=== PATIENT | female | born 1960 | race Caucasian/White ===

== ENCOUNTER 2021-05-02 08:20 | Outpatient (CLI) | payer OTHER, SELFPAY ==
--- NOTE | 2021-05-02 11:00 | NEURO_ITS ---
Impression: # Complains of numbness of legs and balance difficulties. # Normal motor and sensory nerve conduction study including F-waves. # No Tarsal Tunnel Syndrome. # Normal needle/EMG exam without neurogenic changes. # Clinical correlation recommended. Nerve Conduction Studies Anti Sensory Summary Table Stim Site NR Peak (ms) P-T Amp (?V) Site1 Site2 Delta-P (ms) Dist (cm) Alistair (m/s) Left Sup Fibular Anti Sensory (Ant Lat Mall) 14 cm 2.6 10.5 14 cm Ant Lat Mall 2.6 16.0 62 Right Sup Fibular Anti Sensory (Ant Lat Mall) 14 cm 2.7 16.3 14 cm Ant Lat Mall 2.7 16.0 59 Left Sural Anti Sensory (Lat Mall) Calf 2.9 22.5 Calf Lat Mall 2.9 16.0 55 Right Sural Anti Sensory (Lat Mall) Calf 3.0 4.0 Calf Lat Mall 3.0 16.0 53 Motor Summary Table Stim Site NR Onset (ms) O-P Amp (mV) Site1 Site2 Delta-0 (ms) Dist (cm) Alistair (m/s) Left Lateral Plantar Motor (ADM) Med Mall 4.4 3.2 Right Lateral Plantar Motor (ADM) Med Mall 4.0 2.4 Left Peroneal Motor (Vastus Med) Ankle 3.9 1.2 Popit Ankle 7.1 38.0 54 Popit 11.0 0.7 Right Peroneal Motor (Vastus Med) Ankle 3.4 4.4 Popit Ankle 6.9 38.0 55 Popit 10.3 3.8 Left Tibial Motor (Abd Kiser Brev) Ankle 3.9 4.5 Knee Ankle 7.5 41.0 55 Knee 11.4 3.0 Right Tibial Motor (Abd Kiser Brev) Ankle 4.0 7.2 Knee Ankle 8.3 40.0 48 Knee 12.3 7.2 F Wave Studies NR F-Lat (ms) L-R F-Lat (ms) Left Peroneal (Mrkrs) (EDB) 47.47 1.14 Right Peroneal (Mrkrs) (EDB) 46.33 1.14 Left Tibial (Mrkrs) (Abd Hallucis) 47.95 0.87 Right Tibial (Mrkrs) (Abd Hallucis) 47.08 0.87 EMG Side Muscle Nerve Root Ins Act Fibs Amp Dur Recrt Comment Right AntTibialis Dp Br Fibular L4-5 Nml Nml Nml Nml Nml Right Gastroc Tibial S1-2 Nml Nml Nml Nml Nml Right Fibularis Long Sup Br Fibular L5-S1 Nml Nml Nml Nml Nml Right Flex Dig Long Tibial L5-S2 Nml Nml Nml Nml Nml Right Ext Dig Brev Dp Br Fibular L5, S1 Nml Nml Nml Nml Nml Left AntTibialis Dp Br Fibular L4-5 Nml Nml Nml Nml Nml Left Gastroc Tibial S1-2 Nml Nml Nml Nml Nml Left Fibularis Long Sup Br Fibular L5-S1 Nml Nml Nml Nml Nml Left Flex Dig Long Tibial L5-S2 Nml Nml Nml Nml Nml Left Ext Dig Brev Dp Br Fibular L5, S1 Nml Nml Nml Nml Nml MTDD
== END 2021-05-02 08:21 | disposition home or self-care (01) ==
LOC: ANHNEURO 08:25
PROVIDERS: PCP Family Medicine; Visit Provider Family Medicine
DX: R26.9 Unspecified abnormalities of gait and mobility (principal)
CPT/HCPCS: 95886; 95911

== ENCOUNTER 2021-05-08 08:54 | Outpatient (CLI) | payer OTHER, SELFPAY ==
--- NOTE | ~2021-05-08 | MM_ITS ---
EXAMINATION: MM screening [facility] BI [place] HISTORY: Screening mammogram TECHNIQUE: Craniocaudal and mediolateral oblique 3-D tomosynthesis images were obtained and synthetic 2-D images were generated. CAD analysis was submitted and interpreted. COMPARISON: 12/14/2015, 09/30/2013 BREAST PARENCHYMAL COMPOSITION: The breasts are heterogeneously dense, which may obscure small masses . FINDINGS: There is no evidence of suspicious mass, calcification, or architectural distortion to sugg est malignancy in either breast. There has been no suspicious interval change. IMPRESSION: 1. No mammographic evidence of malignancy. 2. Recommend routine screening mammography in one year. BI-RADS Category 1: Negative Reviewed, dictated and finalized at location A.
== END 2021-05-08 08:55 | disposition home or self-care (01) ==
LOC: ANHIMG 08:55
PROVIDERS: PCP Family Medicine; Visit Provider Family Medicine
DX: Z12.31 Encounter for screening mammogram for malignant neoplasm of breast (principal)
CPT/HCPCS: 77063; 77067

== ENCOUNTER 2021-05-08 09:35 | Outpatient (CLI) | payer OTHER, SELFPAY ==
--- NOTE | ~2021-05-08 | XR_ITS ---
EXAMINATION: XR hand BI arthritis min 3V DATE: 05/08/2021 09:56 INDICATION: Right thumb pain. 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 TECHNIQUE: 4 views of right hand and 4 views of left hand on a total of 7 radiographs were obtained. COMPARISON: None. FINDINGS: RIGHT HAND: Bone alignment is normal. No fracture. There is moderate osteoarthritis of triscaphe join t and first carpometacarpal joint. There is mild osteoarthritis of second and fifth distal interphala ngeal joints. LEFT HAND: Bone alignment is normal. No fracture. There is mild osteoarthritis of triscaphe joint and first carpometacarpal joint. There is mild osteoarthritis of second and fifth proximal interphalange al joints and second-fourth distal interphalangeal joints. IMPRESSION: 1. Polyarticular osteoarthritis. Reviewed, dictated and finalized at location A.
--- NOTE | ~2021-05-08 | XR_ITS ---
EXAMINATION: XR foot RT min 3V DATE: 05/08/2021 09:56 INDICATION: Medial sided right foot pain TECHNIQUE: Dorsoplantar, two oblique and lateral views of the right foot were obtained. COMPARISON: None. FINDINGS: Alignment is normal. No fracture. Mild osteoarthritis at the first metatarsophalangeal and a few tars ometatarsal and interphalangeal joints. No erosions. Small plantar calcaneal spur. Soft tissues are u nremarkable. IMPRESSION: 1. Mild polyarticular osteoarthritis at the right fore and midfoot. No acute osseous abnormality. Reviewed, dictated and finalized at location A. IMPRESSION: 1. Mild polyarticular osteoarthritis at the right fore and midfoot. No acute os seous abnormality.
== END 2021-05-08 09:36 | disposition home or self-care (01) ==
LOC: ANHIMG 09:37
PROVIDERS: PCP Family Medicine; Visit Provider Family Medicine
DX: M25.549 Pain in joints of unspecified hand (principal); M25.571 Pain in right ankle and joints of right foot; M19.042 Primary osteoarthritis, left hand; M19.041 Primary osteoarthritis, right hand; M19.071 Primary osteoarthritis, right ankle and foot
CPT/HCPCS: 73130; 73630

== ENCOUNTER 2021-06-07 09:28 | Outpatient (CLI) | payer OTHER, SELFPAY ==
--- NOTE | ~2021-06-07 | MR_ITS ---
EXAMINATION: MR brain IAC wo con DATE: 06/07/2021 10:32 INDICATION: Dizziness and giddiness. Hearing loss. Tinnitus. TECHNIQUE: Multisequence magnetic resonance imaging (MRI) of the brain, brainstem, and internal audit ory canals was performed without intravenous contrast. COMPARISON: None. FINDINGS: There are scattered areas of nonspecific increased T2-weighted signal intensity in the cere bral white matter, which is within normal limits for the patient's age. There is no intracranial hemo rrhage, acute infarction, or abnormal intracranial mass lesion. The ventricles are normal in size. Th e orbits are normal. There is a mucous retention cyst in right maxillary sinus. The internal auditory canals and inner and middle ears are normal. The mastoid air cells are normal. IMPRESSION: 1. Normal aging brain. Reviewed, dictated and finalized at location A. IMPRESSION: 1. Normal aging brain.
== END 2021-06-07 09:29 | disposition home or self-care (01) ==
LOC: ANHIMG 09:28
PROVIDERS: PCP Family Medicine; Visit Provider Family Medicine
DX: H91.90 Unspecified hearing loss, unspecified ear (principal); R42 Dizziness and giddiness; H93.19 Tinnitus, unspecified ear
CPT/HCPCS: 70551

== ENCOUNTER 2021-06-18 09:00 | Outpatient (CLI) | payer OTHER, SELFPAY ==
--- NOTE | ~2021-06-18 | DEXA_ITS ---
Bone Density Report Name: ZORAIDA TREVIZO Age: 61 Sex: Female Ethnicity: White Date of : 1960 Indication: postmenopausal; screening for osteoporosis; height loss; Referring Provider: ALEJANDRA IBARRA Study: Bone densitometry was performed. Exam Date: June 18, 2021 Accession number: [id number] Bone Density: Region BMD T-score Z-score Classification AP Spine(L1-L4) 0.786 -2.4 -0.7 Osteopenia Femoral Neck (Left) 0.690 -1.4 0.0 Osteopenia Total Hip (Left) 0.820 -1.0 0.1 Normal Femoral Neck (Right) 0.683 -1.5 -0.1 Osteopenia Total Hip (Right) 0.826 -1.0 0.2 Normal Total Hip Mean 0.823 -1.0 0.2 Normal World Health Organization criteria for BMD impression classify patients as: Normal (T-score at or above -1.0), Osteopenia (T-score between -1.0 and -2.5), or Osteoporosis (T-score at or below -2.5). 10-year Fracture Risk(1): Major Osteoporotic Fracture 8.1% Hip Fracture 0.8% Reported Risk Factors: [place] (), Neck BMD=0.683, BMI=22.3 (1) FRAX(R) Version 3.08. Fracture probability calculated for an untreated patient. Fracture probability may be lower if the patient has received treatment. Clinical Information Provided by Patient: Has used the following medications: Vitamin D, Calcium Patient maximum height was 65 Menopause Age: 50 Does not regularly consume dairy products Onset of menses at age 11 Number of children 2 Impression: The patient has low bone mass, based on the Total Spine T-score. The patient has an estimated ten-year risk of hip fracture of 0.8% and an estimated ten-year risk of major fracture of 8.1%, based on the WHO FRAX algorithm. Discussion: BONE DENSITY IS LOW AT ONE OR MORE SKELETAL SITES. This patient's lowest T-score is low at one or more skeletal sites. It meets the World Health Organization's (WHO) criteria for ?low bone mass? (T-score between -1.0 and -2.5). The patient's 10-year risk of fracture as calculated by FRAX is less than the threshold where pharmacological therapy is recommended by the National Osteoporosis Foundation (NOF). However, all treatment decisions require clinical judgment and consideration of individual patient factors, including patient preferences, comorbidities, previous drug use, risk factors not captured in the FRAX model (e.g., frailty, falls, vitamin D deficiency, increased bone turnover, interval significant decline in bone density) and possible under or overestimation of fracture risk by FRAX. The patient should follow a healthful lifestyle (good nutrition with adequate calcium and vitamin D, and appropriate weight-bearing exercise). Follow-Up: Consider repeating this study in 2 to 3 years to reassess this patient's status, or sooner if there is some new clinical indication. Reported by: LANG on
== END 2021-06-18 09:01 | disposition home or self-care (01) ==
LOC: ANHIMG 09:03
PROVIDERS: PCP Family Medicine; Visit Provider Family Medicine
DX: Z78.0 Asymptomatic menopausal state (principal); M85.89 Other specified disorders of bone density and structure, multiple sites
CPT/HCPCS: 77080

== ENCOUNTER 2023-07-21 14:02 | Emergency (ER) | payer MEDICARE, SELFPAY ==
[2023-07-21 14:13] VITALS: BP 137/89; PULSE 88; RESP 16; TEMP 37.3; O2SAT 100
--- NOTE | 2023-07-21 14:44 | ED.ANIMALBIT ---
HPI - Animal Bite General Chief Complaint: Animal Bite Stated Complaint: Dog Bite Time Seen by Provider: 07/21/23 14:44 Source: patient Mode of arrival: ambulatory Limitations: no limitations History of Present Illness HPI narrative: 63 year old female presents with complaint dog bite to left breast. Injury happened around 9:00 p.m. last night. Patient states that she was bending over to pet dog without bra on and it nipped at her. Patient cleaned wound at home. All systems reviewed and negative except as noted above. Related Data Home Medications Medication Instructions Recorded Confirmed cholecalciferol (vitamin D3) 125 5,000 unit PO DAILY 01/18/19 07/21/23 mcg (5,000 unit) capsule multivitamin 1 cap PO DAILY 01/18/19 07/21/23 Allergies Allergy/AdvReac Type Severity Reaction Status Date / Time lisinopril Allergy Unknown COUGH Verified 07/21/23 14:03 Penicillins Allergy Unknown throat Verified 07/21/23 14:03 swelling PMFSH Past Medical History Medical History Hypothyroid Hypothyroid Surgical History Surgical History H/O thyroidectomy H/O tubal ligation History of lobectomy of thyroid Hx of tonsillectomy Status post right inguinal hernia repair 02-11-19 Unilateral inguinal hernia without obstruction or gangrene (Unknown) Family History Family History Mother Family history of osteoporosis Hypertension Family history of liver disease Family history of kidney disease Family history of primary malignant neoplasm of liver Family history of coronary artery disease Family history of lung disease Family history of hearing loss Family history of malignant neoplasm Grandparent Family history of osteoporosis Diabetes mellitus Father Family history of coronary artery disease Acute myocardial infarction Social History Social History Smoking status: Never smoker Alcohol intake: current Lack of Transportation: No Lack of Food: Never True Current Housing: I Have Housing Concerned About Future Housing: No Difficulty Paying Gas/Electric Bills: No Difficulty Paying for Meds: No Currently Unemployed: No Education: High School Diploma/GED Difficulty w/ Childcare or Family Care: YES Comments At time of signature, agree with nursing past medical, surgical, social and family history. There is no relevant family history pertinent to the presenting complaint. Exam Narrative: GENERAL: This is a well-nourished, well-developed patient, in no apparent distress. HEAD: normocephalic, atraumatic. EYES: PERRL. Sclera clear/white. Vision is grossly intact. EARS: External ears normal NOSE: External nose normal NECK: Neck supple, non-tender without lymphadenopathy, masses or thyromegaly. CARDIOVASCULAR: Regular rate and rhythm without murmurs, gallops, or rubs. RESPIRATORY: Clear to auscultation. Breath sounds equal bilaterally. No wheezes, rales, or rhonchi. SKIN: warm, Dry, intact with no suspicious lesions or rash, good texture and turgor. small puncture wound to L nipple without active bleeding. no signs of infection. NEURO: awake, alert, and oriented to person, place and time. There were no obvious focal neurologic abnormalities. EXTREMITIES: No joint tenderness, effusion, or edema noted. Course Course Level of Care: Express Care Visit Vital Signs Vital signs: Vital Signs Temperature 37.3 C 07/21/23 14:13 Pulse Rate 88 07/21/23 14:13 Respiratory Rate 16 07/21/23 14:13 Blood Pressure 137/89 07/21/23 14:13 Pulse Oximetry 100 07/21/23 14:13 Temperature 37.3 C 07/21/23 14:13 Pulse Rate 88 07/21/23 14:13 Respiratory Rate 16 07/21/23 14:13 Blood Pressure 137/89 07/21/23 14:13 Pulse Oximetry 100
== END 2023-07-21 15:15 | disposition home or self-care (01) ==
PROVIDERS: Emergency Provider Nurse Practitioner Family
DX: S21.052A Open bite of left breast, initial encounter (principal); W54.0XXA Bitten by dog, initial encounter; E03.9 Hypothyroidism, unspecified; Z90.89 Acquired absence of other organs
CPT/HCPCS: 99213; G0463

== ENCOUNTER 2024-05-12 09:22 | Outpatient (CLI) | payer MEDICARE, SELFPAY ==
--- OUTSIDE RECORDS SUMMARY | 2024-05-12 10:25 | XMS_ITS ---
Author Organization [facility] As [place] group Address [address] [place] [address] Care Team Providers Care Software Asset Manager Name Role Phone ALEJANDRA IBARRA MD Primary Care Provider Phong Arellano Unavailable [phone] Reinier Eva Unavailable [phone] Allergies Allergen (clinical drug ingredient) Drug/Non Drug Allergy documented on EMR Reaction Allergy Type Onset Date Status Substance with penicillin structure and antibacterial mechanism of action (substance) Penicillins Unknown Drug Allergy 11/04/2022 Active REASON FOR VISIT anxiety, depression Medications Medication SIG (Take, Route, Frequency, Duration) Notes Start Date End Date Status hydroCHLOROthiazide 25 MG Oral 11/04/2022 Active Venlafaxine HCl ER 75 MG Oral 11/04/2022 Active Levothyroxine Sodium 75 MCG Oral 11/04/2022 Active Vitamin D3 125 MCG (5000 UT) Oral 11/04/2022 Active Centrum Silver *Pick strength-form from [employer] for eRX* 11/04/2022 Active Social History Tobacco Use: Social History Observation Description Date Details (start date - stop date) Never Smoker NA - NA Sex Assigned At : Social History Observation Description Sex Assigned At Female Tobacco Control (Standard) Question Answer Notes Tobacco use: Nonsmoker AUDIT-C (Standard) Question Answer Notes Did you have a drink containing alcohol in the p ast year? No Vital Signs Blood pressure systolic 129 mm Hg 03/24/19 25 Blood pressure diastolic 84 mm Hg 025 Heart Rate 76 /min 03/24/2024 Height 63.50 in 03/24/2024 Weight 131.8 lbs 03/24/2024 BMI 22.98 kg/m2 03/24/2024 Height-cm 161.29 cm 03/24/2024 Weight-kg 59.78 kg 03/24/2024 Encounters Encounter Location Date Provider Diagnosis [facility] [address] [facility] [address] [place] [address] 03/24/2024 Eva Hills Generalized anxiety disorder F41.1 and Major depressive disorder, recurrent, moderate F33.1 Assessments Encounter Date Diagnosis (ICD Code) Assessment Notes Treatment Notes Treatment Clinical Notes Section Notes 03/24/2024 Generalized anxiety disorder (ICD-10 - F41.1) Client is a 64 y/o old, female (44 years), with 2 grown children (son live [facility], daughter lives in [place]). 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 She reports childhood was happy and fun. She reports she had some dyslexia in school but has learned to compensate for it. Client's had quadruple bypass surgery last year. She states he is going well as far as his health but is showing signs of dementia since the surgery. Client's son has an alcohol problem. Her son is planning on going to rehab. At various times he has been diagnosed with schizophrenia, depression, and bipolar di/o. Client first saw Dr. Bean in this clinic on 11/04/22. She is currently prescribed venlafaxine. Current PHQ=4. Client reports depression has been present since her father in 1989. She currently reports mild issues with anhedonia (taking care of her dogs and ), feeling down, self esteem, and issues with appetite (overeating). Current ARMEN=5. Client reports anxiety became an issue after she got (age 17). She reports mild issues with feeling on edge, worry and controlling the worry (her and her son), irritability, and hypervigilance. 03/24/2024 Major depressive disorder, recurrent, moderate (ICD-10 - F33.1) Client is a 64 y/o old, female (44 years), with 2 grown children (son live [facility], daughter lives in [place]). 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 She reports childhood was happy and fun. She reports she had some dyslexia in school but has learned to compensate for it. Client's had quadruple bypass surgery last year. She states he is going well as far as his health but is showing signs of dementia since the surgery. Client's son has an alcohol problem. Her son is planning on going to rehab. At various times he has been diagnosed with schizophrenia, depression, and bipolar di/o. Client first saw Dr. Bean in this clinic on 11/04/22. She is currently prescribed venlafaxine. Current PHQ=4. Client reports depression has been present since her father in 1989. She currently reports mild issues with anhedonia (taking care of her dogs and ), feeling down, self esteem, and issues with appetite (overeating). Current ARMEN=5. Client reports anxiety became an issue after she got (age 17). She reports mild issues with feeling on edge, worry and controlling the worry (her and her son), irritability, and hypervigilance. 03/24/2024 Other Client would like to present for therapy every 2 weeks. Client is a 64 y/o old, female (44 years), with 2 grown children (son live [facility], daughter lives in [place]). 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 She reports childhood was happy and fun. She reports she had some dyslexia in school but has learned to compensate for it. Client's had quadruple bypass surgery last year. She states he is going well as far as his health but is showing signs of dementia since the surgery. Client's son has an alcohol problem. Her son is planning on going to rehab. At various times he has been diagnosed with schizophrenia, depression, and bipolar di/o. Client first saw Dr. Bean in this clinic on 11/04/22. She is currently prescribed venlafaxine. Current PHQ=4. Client reports depression has been present since her father in 1989. She currently reports mild issues with anhedonia (taking care of her dogs and ), feeling down, self esteem, and issues with appetite (overeating). Current ARMEN=5. Client reports anxiety became an issue after she got (age 17). She reports mild issues with feeling on edge, worry and controlling the worry (her and her son), irritability, and hypervigilance. Plan Of Treatment Next Appt Details Follow Up: 2 Weeks, Reason: therapy follow up Provider Name:Phong De Lunaam , 06/09/2024 08:45:00 AM, [address], [address], [address], Provider Name:Eva Hills , 06/16/2024 09:00:00 AM, [address], [facility] [address], [place], [address], Progress Notes * ZORAIDA TREVIZODOB: (64 yo F)Acc No.[id number]:03/24/2024 Patient: Juan PRESTONZORAIDA Provider: Juan HILLS LCSW :1960 A ge:64 Y S ex:Female Date:03/24/2024 Address:[address] [place], [place] [id number] Pcp:ALEJANDRA IBARRA MD Data: * Time Tracker: * Date Start Time End Time Duration User Type Captured By Mode Notes 03/24/2024 03:00 PM 03:29 PM 00:29:00 Therapist Eva Hills anual * Chief Complaints: * 1 . Anxiety. 2. Depression. * HPI: F unctional Status: Client presents to initiate therapy services. D epression Screening: ARMEN-7 (2018 Edition) F eeling nervous, anxious, or on edge?Several days, N ot being able to stop or control worrying S everal days, W orrying too much about different things S everal days, T rouble relaxing N ot at all, B eing so restless that it is hard to sit still N ot at all, B ecoming easily annoyed or irritable?Several days, F eeling afraid as if something awful might happen S everal days, T otal ARMEN-7 Score 5 , I f you checked any problems, how difficult have they made it for you to do your work, take care of things at home, or get along with other people? S omewhat difficult, I nterpretation of Total ( 5 to 9) Mild. [place]-Suicide Severity Rating Scale: Suicide Risk (CSRS-screener) i n the past one month Have you wished you were or wished you could go to sleep and not wake up? N o, i n the past one month Have you actually had any thoughts of killing yourself? N o. D epression screening: PHQ-9 L ittle interest or pleasure in doing things S everal days, F eeling down, depressed, or hopeless S everal days, T rouble falling or staying asleep, or sleeping too much N ot at all, F eeling tired or having little energy N ot at all, P oor appetite or overeating S everal days, F eeling bad about yourself or that you are a failure, or have let yourself or your family down S everal days, T rouble concentrating on things, such as reading the newspaper or watching television N ot at all, M oving or speaking so slowly that other people could have noticed; or the opposite, being so fidgety or restless that you have been moving around a lot more than usual N ot at all, T houghts that you would be better off or of hurting yourself in some way N ot at all, T otal Score 4 , I nterpretation M inimal Depression. I ntervention D epression Screening Findings N egative, S uicide Risk Assessment Performed 0 03/24/2024 Client denies plan or intent to harm herself at this time.. * Behavioral History: P ast psychiatric Hospitalization:No. H istory of suicidal attempt?:No. * Medical History: P roblems: Generalized anxiety disorder, Moderate recurrent major depression, ,. * Surgical History: A ny surgical history 02/24/2018, Tonsilectomy/adenoids 08/09/1995. * Family History: F ather: None. M other: Anxiety Disorder. B rother: None. S on: Alcohol Abuse.? * Social History: T obacco Use: T obacco Control (Standard) T obacco use: N onsmoker. M igrated Social History: M igrated Social History: Alcohol Intake: None 11/04/2022,Tobacco Years: Never smoker 11/04/2022. D rug/Alcohol: D rugs H ave you used drugs other than those for medical reasons in the past 12 months??No. A ALFREDITO-C (Standard) D id you have a drink containing alcohol in the past year? N o. 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 Safety issues A re there any firearms in the house? N o. A dvance Care Planning A re you your own decision-maker Y es, D o you have Power of Scooping Machine Tender for Health or Medical? N o. S ocial History: H ousehold M arital Status: M arried, N umber of Adults in household: 2 , N umber of Children in Household: 1 , L evel of Education: N ot Answered. * Medications: T aking hydroCHLOROthiazide 25 MG Tablet Oral , Taking Levothyroxine Sodium 75 MCG Tablet Oral , Taking Venlafaxine HCl ER 75 MG Capsule Extended Release 24 Hour Oral , Taking Vitamin D3 125 MCG (5000 UT) Tablet Chewable Oral , Taking Centrum Silver , Notes to Pharmacist: *Pick strength-form from [employer] for eRX*, Medication List reviewed and reconciled with the patient * Allergies: P enicillins: Allergy - Onset Date 11/04/2022. * Vitals: B P:129/84mm Hg, HR:76/min, Wt:131.8lbs, Wt-k.78 kg, Ht: 63.50 in, Ht-cm: 161.29 cm, BMI:22.98Index, Body Surface Area: 1.63. * Examination: P sychiatry: Syd garcia is well groomed and oriented X 3. Assessment: * Assessment: 1. G eneralized anxiety disorder - F41.1 (Primary) 2 . M ajor depressive disorder, recurrent, moderate - F33.1 Client is a 64 y/o old, everardo ied female (44 years), with 2 grown children (son live local, daughter lives in [place]). 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 She reports childhood was happy and fun. She reports she had some dyslexia in school but has learned to compensate for it. Client's had quadruple bypass surgery last year. She states he is going well as far as his health but is showing signs of dementia since the surgery. Client's son has an alcohol problem. Her son is planning on going to rehab. At various times he has been diagnosed with schizophrenia, depression, and bipolar di/o. Syd garcia first saw Dr. Bean in this clinic on 11/04/22. She is currently prescribed venlafaxine. Current PHQ=4. Client reports depression has been present since her father in 1989. She currently reports mild issues with anhedonia (taking care of her dogs and ), feeling down, self esteem, and issues with appetite (overeating). Current ARMEN=5. Client reports anxiety became an issue after she got (age 17). She reports mild issues with feeling on edge, worry and controlling the worry (her and her son), irritability, and hypervigilance. Plan: * Treatment: * Procedure Codes: 9 0791 PSYCHIATRIC DIAGNOSTIC EVALUATION, 02859 BEHAV ASSMT W/SCORE & DOCD/STAND INSTRUMENT * Follow Up: 2 Weeks (Reason: therapy follow up) * Billing Information: * Visit Code: * Procedure Codes: 19866 PSYCHIATRIC DIAGNOSTIC EVALUATION. 41293 BEHAV ASSMT W/SCORE & DOCD/STAND INSTRUMENT. * [employer] Sign off status: Completed Signatures: No Ad Hoc Signature Added true * Provider: Juan HILLS LCSW Date: 0 03/24/2024 Generated for Shira bermeo/Beck/Pamellaitting on: 0 05/12/2024 10:25 AM CDT History and Physical Notes * HPI (History of Present Illness) Category Sub-Category Detail Notes Category Not es Depression screening PHQ-9 Little inte rest or pleasure in doing things: Several days Feeling down, depressed, or hopeless: Se veral days Trouble falling or staying asleep, or sl eeping too much: Not at all Feeling tired or having little energy: N ot at all Poor appetite or overeating: Several day s Feeling bad about yourself o r that you are a failure, or have let yourself or your family down: Several days Trouble concentrating on thi ngs, such as reading the newspaper or watching television: Not at all Moving or speaking so slowly that other people could have noticed; or the opposite, being so fidgety or restless that you have been moving around a lot more than usual: Not at all Thoughts that you would be b lewis off or of hurting yourself in some way: Not at all Total Score: 4 Interpretation: Minimal Depression Intervention Depression Screening Findings: N egative Suicide Risk Assessment Perf ormed: 03/24/2024 Client denies plan or intent to harm herself at this time. Functional Status Client pre sents to initiate therapy services. Depression Screening ARMEN-7 (2018 Edition) Feeling nervous, anxious, or on edge: Several days Not being able to stop or control worryi ng: Several days Worrying too much about different things : Several days Trouble relaxing: Not at all Being so restless that it is hard to sit still: Not at all Becoming easily annoyed or irritable: Se veral days Feeling afraid as if something awful kareen ht happen: Several days Total ARMEN-7 Score: 5 If you checked any problems, how difficult have they made it for you to do your work, take care of things at home, or get along with other people?: Somewhat difficult Interpretation of Total: (5 to 9) Mild [place]-Suicide Severity Rating Scale Suicide Risk (CSRS-screener) in the past one month Have you wished you were or wished you could go to sleep and not wake up?: No in the past one month Have y ou actually had any thoughts of killing yourself?: No Examination Category Sub-Category Detail Notes Category Not es Psychiatry Client is well groomed and oriented X 3.
--- OUTSIDE RECORDS SUMMARY | 2024-05-12 10:25 | XMS_ITS | Patient Health Record ---
Author Organization [facility] As [place] Communication Address [address] [place] [address] Care Team Providers Care Elevator Examiner Name Role Phone ALEJANDRA IBARRA MD Primary Care Provider Suly De LunaPhong john Unavailable [phone] ReinierEva glover Unavailable [phone] Migration, Provider Unavailable Unavailable Allergies Allergen (clinical drug ingredient) Drug/Non Drug Allergy documented on EMR Reaction Allergy Type Onset Date Status Substance with penicillin structure and antibacterial mechanism of action (substance) Penicillins Unknown Drug Allergy 11/04/2022 Active Reason For Referral No Information Medications Medication SIG (Take, Route, Frequency, Duration) Notes Start Date End Date Status Vitamin D3 125 MCG (5000 UT) Oral 11/04/2022 Active Centrum Silver *Pick strength-form from [employer] for eRX* 11/04/2022 Active hydroCHLOROthiazide 25 MG Oral 11/04/2022 Active Levothyroxine Sodium 75 MCG Oral 11/04/2022 Active Venlafaxine HCl ER 75 MG Oral 11/04/2022 Active Social History Tobacco Use: Social History Observation Description Date Details (start date - stop date) Never Smoker NA - NA Sex Assigned At : Social History Observation Description Sex Assigned At Female Tobacco Control (Standard) Question Answer Notes Tobacco use: Nonsmoker AUDIT-C (Standard) Question Answer Notes Did you have a drink containing alcohol in the p ast year? No Problems Problem Type SNOMED Code ICD Code Onset Dates Problem Status W/U Status Risk Notes Problem Moderate recurrent major depression (00989464) Major depressive disorder, recurrent, moderate (F33.1) Active confirmed Problem Generalized anxiety disorder (89949684) Generalized anxiety disorder (F41.1) 3 Active confirmed Vital Signs Heart Rate 76 /min 03/24/2024 Height-cm 161.29 cm 03/24/2024 Blood pressure diastolic 84 mm Hg 03/24/2024 Weight-kg 59.78 kg 03/24/2024 Height 63.50 in 03/24/2024 Blood pressure systolic 129 mm Hg 03/24/2024 Weight 131.8 lbs 03/24/2024 BMI 22.98 kg/m2 03/24/2024 Encounters Encounter Location Date Provider Diagnosis [place] [address] [address] 03/18/2024 Phong Vikas Generalized anxiety disorder F41.1 and Major depressive disorder, recurrent, moderate F33.1 [place] [address] [address] 03/24/2024 Eva Reinier Generalized anxiety disorder F41.1 and Major depressive disorder, recurrent, moderate F33.1 [place] [address] [address] 04/08/2024 Eva Reinier Generalized anxiety disorder F41.1 and Major depressive disorder, recurrent, moderate F33.1 [place] [address] [address] 05/11/2024 Eva Reinier Generalized anxiety disorder F41.1 and Major depressive disorder, recurrent, moderate F33.1 [place] [address] [address] 07/12/2023 Provider Migration [place] [address] [address] 07/13/2023 Provider Migration [place] [address] [address] 03/18/2024 Phong Vikas Assessments Encounter Date Diagnosis (ICD Code) Assessment Notes Treatment Notes Treatment Clinical Notes Section Notes 03/18/2024 Generalized anxiety disorder (ICD-10 - F41.1) 03/24/2024 Generalized anxiety disorder (ICD-10 - F41.1) Client is a 64 y/o old, female (44 years), with 2 grown children (son live [facility], daughter lives in [place]). 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 Client is the youngest of 2 and grew up in [place], [place]. She reports childhood was happy and [...] worry (her and her son), irritability, and hypervigilance . 04/08/2024 Generalized anxiety disorder (ICD-10 - F41.1) 05/11/2024 Generalized anxiety disorder (ICD-10 - F41.1) 05/11/2024 Major depressive disorder, recurrent, moderate (ICD-10 - F33.1) 04/08/2024 Major depressive disorder, recurrent, moderate (ICD-10 - F33.1) 03/24/2024 Major depressive disorder, recurrent, moderate (ICD-10 - F33.1) Client is a 64 y/o old, female (44 years), with 2 grown children (son live [facility], daughter lives in [place]). 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 Client is the youngest of 2 and grew up in [place], [place]. She reports childhood was happy and [...] worry (her and her son), irritability, and hypervigilance . 03/18/2024 Major depressive disorder, recurrent, moderate (ICD-10 - F33.1) 03/18/2024 Other Learning About Depression Screening material was printed Stress and Anxiety Related to Son's Alcoholism and Mental Health Issues - Assessment: Patient experiencing stress and anxiety due to son's alcoholism and mental health issues, compounded by 's recent heart attack and surgery. - Plan: - Encourage patient to attend individual counseling sessions. - Provide a list of prospective counselors for the patient to choose from. - Recommend continuing Al-Anon meetings for support and coping strategies. - Encourage open communication with and family members for additional support. Depressive Symptoms - Assessment: Patient exhibiting depressive symptoms, including increased eating and crying spells. - Plan: - Monitor depressive symptoms and consider referral to a psychiatrist if symptoms worsen or persist. - Encourage self-care activities and maintaining a healthy lifestyle. - Recommend avoiding reading materials that may trigger depressive symptoms. Son's Alcoholism and Mental Health Issues - Plan: - Encourage patient to continue seeking appropriate treatment options for her son. - Discuss importance of setting boundaries and potential consequences of enabling behavior. - Recommend attending a [facility] support group for additional resources and guidance. Marital Stress - Assessment: Patient experiencing marital stress related to son's issues. - Plan: - Encourage patient and to attend couples counseling. - Recommend open communication and mutual support between patient and . Guilt and Feelings of Failure - Assessment: Patient experiencing guilt and feelings of failure. - Plan: - Address these feelings in individual counseling sessions. - Develop healthy coping strategies, acknowledging patient's strong bhavesh as a source of support. - Encourage patient to focus on her own well-being and self-care. 03/24/2024 Other Client would like to present for therapy every 2 weeks. Client is a 64 y/o old, female (44 years), with 2 grown children (son live local, daughter lives in [place]). 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 Client is the youngest of 2 and grew up in [place], [place]. She reports childhood was happy and [...] worry (her and her son), irritability, and hypervigilance . 04/08/2024 Other Client focused on the anxiety created by her son's alcohol use. Her son went to the ER upon his docotr's advice, due to high blood pressure. It was then suggested that he go to rehab, which he is currently doing. Client is focused on preventing any enabling actions in regard to her son. Therapist actively listened to client and utilized a cognitive behavioral intervention to help client explore strategies to set reasonable boundaries with her son when he gets out of rehab. 05/11/2024 Other Client focused on her son's relapse since her son got out of rehab. She focused on the guilt she sometimes feels. She and continue to go to [facility] and client has also consulted with her learning and development assistant for guidance according to her bhavesh. Therapist actively listened to client and utilized a cognitive behaviorall intervention to help client explore strategies to minimize her guilt (setting firm boundaries with her son, turn guilt over to God, etc). ARMEN=7 mild Plan Of Treatment Next Appt Details Provider Name:Phong Chloe Vikas , 06/09/2024 08:45:00 AM, [address], [address], [place], [address], Provider Name:Eva Hills , 06/16/2024 09:00:00 AM, [address], [address], [place], [address], Insurance Providers Payer Name Payer Address Payer Phone Subscriber Number Group Number Insured Name Patient Relationship to Insured Coverage Start Date Coverage End Date [place] [address] [place] [phone] [id number] ZORAIDA TREVIZO Self - patient is the insured [facility] Medicare Supplement [address] [address] [place] [address] [id number] ZORAIDA TREVIZO Self - patient is the insured Medical (General) History Medical History History ICD Code Problems: Generalized anxiety disorder Moderate recurrent major depression , Surgical History Surgery Date(Month/Year) Any surgical history 02/24/2018 Tonsilectomy/adenoids 08/09/1995
--- OUTSIDE RECORDS SUMMARY | 2024-05-12 10:25 | XMS_ITS | Encounter Summary ---
Author Organization [facility] Address [address] [place] [address] Care Team Providers Care High School Science Teacher Name Role Phone Mariana Gardner MD Primary Care Provider [phone] Encounter Details Date Type Department Care Team (Late st Contact Info) Description 12/31/2019 Lab Requisition [facility] D[facility] [address], [facility] [place] [address] Zak Alvarenga MD [address] [place] [address] Social History Tobacco Use Types Packs/Day Years Used Date Smoking Tobacco: Never Assessed Sex and Gender Information Value Date Recorded Sex Assigned at Not on file Gender Identity Not on file Sexual Orientation Not on file documented as of this encounter Plan of Treatment Not on file documented as of this encounter Procedures Procedure Name Priority Date/Time Associated Diagnosis Comments DERMATOPATHOLOGY Routine 12/30/2019 12:0 0 AM MASONRY INSPECTOR documented in this encounter Results * DERMATOPATHOLOGY (12/30/2019 12:00 AM MASONRY INSPECTOR) Case Report Dermatopathology Report Case: [id number] Authorizing Provider: Zak Alvarenga MD Collected: 12/30/2019 12:00 AM Ordering Location: [facility] Care DermPath Lab Received: 12/31/2019 05:48 AM Pathologist: Angela Haq MD Specimen: Skin, crown of scalp 0 12:31 PM MASONRY INSPECTOR DERMATOPATHOLOGY LABORATORY Final Diagnosis Specimen A. SKIN, crown of scalp: TRICHILEMMAL (PILAR) CYST WITH CALCIFICATION (L72.12) 0 12:31 PM MASONRY INSPECTOR DERMATOPATHOLOGY LABORATORY Clinical History R/O neoplasia. 0 12:31 PM [facility] DERMATOPATHOLOGY LABORATORY Gross Description Specimen A: Received is one formalin filled container labeled with the patient's name and designated crown of scalp. The specimen consists of an excision submitted in 3 pieces measuring [id number], bisected, 9l7o7kj, & 5a7e6tw. Jar 0. 0 12:31 PM [facility] DERMATOPATHOLOGY LABORATORY Microscopic Description Specimen A. SKIN, crown of scalp: Sections show a cyst that is lined by stratified squamous epithelium that shows trichilemmal keratinization (no granular layer). There is homogeneous pink keratin and aggregates of homogenous amorphous basophilic material consistent with calcium within the cyst. 0 12:31 PM [facility] DERMATOPATHOLOGY LABORATORY Disclaimer An external and internal positive and negative controls are appropriate for the histochemical, immunohistochemical and immunofluorescence stain(s) in this case (if any), except where stated explicitly. The performance characteristics of the stain(s) cited in this report were developed and its performance characteristic determined by the Dermatopathology Laboratory at [facility], directed by Dr. Ruperto Novak. These tests need not be, and therefore are not, approved by the [place] Food and Drug Administration. The tests are used for clinical purposes. Billing Codes Specimen Charges Stain Charges 82484 1 0 12:31 PM [facility] DERMATOPATHOLOGY LABORATORY Embedded Images 0 12:31 PM [facility] DERMATOPATHOLOGY LABORATORY Pathology/Cytolog y TISSUE SPECIMEN FROM SKIN / Unknown 12/30/2019 12/31/2019 5:48 AM MASONRY INSPECTOR Zak Alvarenga MD LAB - PATHOLOGY/CYTO LOGY ORDERABLES DERMATOPATHOLOGY LABORATORY [facility] - Department of Dermatology [address], [address] [phone] documented in this encounter Visit Diagnoses Not on filedocumented in this encounter Care Teams High [employer] Science Teacher Relationship Specialty Start Date End Date Mariana Gardner MD [address] [place] [id number] PCP - General 12/30/19 documented as of this encounter
--- OUTSIDE RECORDS SUMMARY | 2024-05-12 10:25 | XMS_ITS | Continuity of Care Document ---
Author Organization [facility] Address [address] [place] [address] Phone Care Team Providers Care Film Librarian Name Role Phone Lee OD, Mateo Unavailable Unavailable Procedures Procedure Date Contact Lens Fitting Eye Exam & Treatment Refraction Eye Exam & Treatment Refraction Advance Directives Directive Yes / No Effective Date File Name No Information Encounters Encounter Description Practice Location Reason(s) For Visit Diagnoses Date Provider Providers Copied on Encounter [facility], [address] [place] [address] [address], [place], [place], [id number], tel:[phone] [facility] No Information 8-200 9 Lee OD Mateo. [address] , [address], [place], [place], [facility], . tel:[phone] [facility], [address], [place], [place], [address], [place] tel:[phone] [facility] No Information 3-200 9 Krishnasamy Hubert. [address], [place], [place], [facility], . tel:[phone] [facility], [address], [place], [place], [address], [place] tel:[phone] [facility] No Information Aug-1 3-200 7 Torsten Grayson. [address], [address], [place], [place], [address], [place]. tel:[phone] Family History Family Member Type Diagnosis Age At Onset No Information Payers Payer name Insurance type Covered green party ID Authoriza tion(s) No Information Social [...]
--- OUTSIDE RECORDS SUMMARY | 2024-05-12 10:25 | XMS_ITS ---
Author Organization [facility] Address [address] [place] [address] Care Team Providers Care Health Unit Clerk Name Role Phone ALEJANDRA IBARRA MD Primary Care Provider Phong Arellano Unavailable [phone] Eva Hills Unavailable [phone] REASON FOR VISIT checked in doing paper, anxiety, depression Medications Medication SIG (Take, Route, Frequency, Duration) Notes Start Date End Date Status Venlafaxine HCl ER 75 MG Oral 11/04/2022 Active Levothyroxine Sodium 75 MCG Oral 11/04/2022 Active Centrum Silver *Pick strength-form from [employer] for eRX* 11/04/2022 Active Vitamin D3 125 MCG (5000 UT) Oral 11/04/2022 Active hydroCHLOROthiazide 25 MG Oral 11/04/2022 Active Social History Tobacco Use: Social History Observation Description Date Details (start date - stop date) Never Smoker NA - NA Sex Assigned At : Social History Observation Description Sex Assigned At Female Tobacco Control (Standard) Question Answer Notes Tobacco use: Nonsmoker Encounters Encounter Location Date Provider Diagnosis [facility] [address] [place] [address] 04/08/2024 Eva Hills Generalized anxiety disorder F41.1 and Major depressive disorder, recurrent, moderate F33.1 Assessments Encounter Date Diagnosis (ICD Code) Assessment Notes Treatment Notes Treatment Clinical Notes Section Notes 04/08/2024 Generalized anxiety disorder (ICD-10 - F41.1) 04/08/2024 Major depressive disorder, recurrent, moderate (ICD-10 - F33.1) 04/08/2024 Other Client focused on the anxiety [...] son when he gets out of rehab. Plan Of Treatment Next Appt Details Follow Up: 2 Weeks, Reason: therapy follow up Provider Name:Phong Bean , 06/09/2024 08:45:00 AM, [address], [address], [address], Provider Name:Eva Hills , 06/16/2024 09:00:00 AM, [address], [place] [address], [place], [address], Progress Notes * ZORAIDA TREVIZODOB: 8 (64 yo F)Acc No.[id number]:04/08/2024 Patient: ZORAIDA VILLANUEVA Provider: Juan HILLS LCSW :1960 A ge:64 Y S ex:Female Date:04/08/2024 Address:[address] [place], [place] [id number] Pcp:ALEJANDRA IBARRA MD Data: * Time Tracker: * Date Start Time End Time Duration User Type Captured By Mode Notes 04/08/2024 08:58 AM 09:57 AM 00:59:00 Therapist Eva Hlils anual * Chief Complaints: * 1 . Checked in doing paper. 2. Anxiety. 3. Depression. * HPI: F unctional Status: Client is here today for psychotherapy to treat anxiety and depression. Based on our session, I think the patient is making moderate progress. At this time I do not recommend changes to the treatment plan. I do not think the patient poses significant risk of harm to self or others at this time. Discussed continued treatment with patient. D epression screening: PHQ-9 L ittle interest or pleasure in doing things S everal days, F eeling down, depressed, or hopeless S everal days, T rouble falling or staying asleep, or sleeping too much N ot at all, F eeling tired or having little energy S everal days, P oor appetite or overeating S everal [...] N ot at all, T otal Score 5, I nterpretation M ild Depression. I ntervention D epression Screening Findings?Positve, F ollow-Up for Depression M [facility] treatment assessment, Patient follow-up to return when and if necessary, S uicide Risk Assessment Performed 0 04/08/2024 Client denies plan or intent to harm herself at this time, A dditional Evaluation for Depression P sychiatric interview and evaluation, N rosalia of the standardized tool used for adult depression screening: P atient Health Questionnaire (PHQ-9). D epression Screening: ARMEN-7 (2018 Edition) F eeling nervous, anxious, or on edge?Several days, N ot being able to stop or control worrying M ore than half the days,?Worrying too much about different things S everal days, T rouble relaxing N ot at all, Being so restless that it is hard to sit still N ot at all, B ecoming easily annoyed or irritable S everal days, F eeling afraid as if something awful might happen S everal , T otal ARMEN-7 Score 6 , I nterpretation of Total ( 5 to 9) Mild. * Behavioral History: P ast psychiatric Hospitalization:No. H istory of suicidal attempt?:No. * Family History: F ather: None. M other: Anxiety Disorder. B rother: None. S on: Alcohol Abuse.? * Social History: T obacco Use: T obacco Control (Standard) T obacco use: N onsmoker. * Medications: T aking hydroCHLOROthiazide 25 MG Tablet Oral , Taking Levothyroxine Sodium 75 MCG Tablet Oral , Taking Venlafaxine HCl ER 75 MG Capsule Extended Release 24 Hour Oral , Taking Vitamin D3 125 MCG (5000 UT) Tablet Chewable Oral , Taking Centrum Silver , Notes to Pharmacist: *Pick strength-form from [facility] for eRX*, Medication List reviewed and reconciled with the patient * Examination: P sychiatry: C radha is well groomed and oriented X 3. Assessment: * Assessment: 1. G eneralized anxiety disorder - F41.1 (Primary) 2 . M ajor depressive disorder, recurrent, moderate - F33.1 Plan: * Treatment: * Procedure Codes: 9 0837 PSYCHOTHERAPY W/PATIENT 60 MINUTES, 05846 BEHAV ASSMT W/SCORE & DOCD/STAND INSTRUMENT, G8431 CLIN DEPRESSION SCREEN DOC * Follow Up: 2 Weeks (Reason: therapy follow up) * Billing Information: * Visit Code: * Procedure Codes: 20657 PSYCHOTHERAPY W/PATIENT 60 MINUTES. 82697 BEHAV ASSMT W/SCORE & DOCD/STAND INSTRUMENT. G8431 CLIN DEPRESSION SCREEN DOC. * ER FIXER Sign off status: Completed Signatures: No Ad Hoc Signature Added true * Provider: Juan HILLS LCSW Date: 0 04/08/2024 Generated for Shira bermeo/Beck/Pamellaitting on: 0 05/12/2024 10:24 AM CDT History and Physical Notes * HPI (History of Present Illness) Category Sub-Category Detail Notes Category Not es Depression screening PHQ-9 Little inte rest or pleasure in doing things: Several days Feeling down, depressed, or hopeless: Se veral days Trouble falling or staying asleep, or sl eeping too much: Not at all Feeling tired or having little energy: S everal days Poor appetite or overeating: Several day s [...] some way: Not at all Total Score: 5 Interpretation: Mild Depression Intervention Depression Screening Findings: P ositve Follow-Up for Depression: [facility] treatment assessment, Patient follow-up to return when and if necessary Suicide Risk Assessment Performed: 04/08 Client denies plan or intent to harm herself at this time Additional Evaluation for De pression: Psychiatric interview and evaluation Name of the standardized too l used for adult depression screening:: Patient Health Questionnaire (PHQ-9) Depression Screening ARMEN-7 (2018 Edition) Feelin g nervous, anxious, or on edge: Several days Not being able to stop or control worryi ng: More than half the days Worrying too much about different things : Several days Trouble relaxing: Not at all Being so restless that it is hard to sit still: Not at all Becoming easily annoyed or irritable: Se veral days Feeling afraid as if something awful kareen ht happen: Several days Total ARMEN-7 Score: 6 Interpretation of Total: (5 to 9) Mild Examination Category Sub-Category Detail Notes Category Not es Psychiatry Client is well groomed and oriented X 3
--- OUTSIDE RECORDS SUMMARY | 2024-05-12 10:25 | XMS_ITS ---
Author Organization [facility] Address [address] [place] [address] Care Team Providers Care Woodworker Helper Name Role Phone ALEJANDRA IBARRA MD Primary Care Provider Phong Arellano Unavailable [phone] Eva Hills Unavailable [phone] REASON FOR VISIT Therapy Follow Up, anxiety, depression Medications Medication SIG (Take, Route, Frequency, Duration) Notes Start Date End Date Status Vitamin D3 125 MCG (5000 UT) Oral 11/04/2022 Active Centrum Silver *Pick strength-form from [employer] for eRX* 11/04/2022 Active hydroCHLOROthiazide 25 MG [...] alcohol in the p ast year? No Encounters Encounter Location Date Provider Diagnosis [facility] [employer] [facility] [address] [place] [address] 05/11/2024 Eva Hills Generalized anxiety disorder F41.1 and Major depressive disorder, recurrent, moderate F33.1 Assessments Encounter Date Diagnosis (ICD Code) Assessment Notes Treatment Notes Treatment Clinical Notes Section Notes 05/11/2024 Generalized anxiety disorder (ICD-10 - F41.1) 05/11/2024 Major depressive disorder, recurrent, moderate (ICD-10 - F33.1) 05/11/2024 Other Client focused on her son's relapse since her son got out of rehab. She focused on the guilt she sometimes feels. 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 Therapist actively listened to client and utilized a cognitive behaviorall intervention to help client explore strategies to minimize her guilt (setting firm boundaries with her son, turn guilt over to God, etc). ARMEN=7 mild Plan Of Treatment Next Appt Details Follow Up: 2 Weeks, Reason: therapy follow up Provider Name:Phong Bean , 06/09/2024 08:45:00 AM, [address] [facility], [address], [address], Provider Name:Eva Hills , 06/16/2024 09:00:00 AM, [address], [address], [address], Progress Notes * ZORAIDA TREVIZODOB: 8 (64 yo F)Acc No.[id number]:05/11/2024 Patient: Juan SAMCHRISTOPHEZORAIDA Provider: Juan HILLS LCSW :1960 A ge:64 Y S ex:Female Date:05/11/2024 Address:[address] [place], [place] [id number] Pcp:ALEJANDRA IBARRA MD Data: * Time Tracker: * Date Start Time End Time Duration User Type Captured By Mode Notes 05/11/2024 09:08 AM 09:59 AM 00:51:00 Therapist Eva Hills anual * Chief Complaints: * 1 . Therapy Follow Up. 2. Anxiety. 3. Depression. * HPI: F [...] Discussed continued treatment with patient. D epression Screening: ARMEN-7 (2018 Edition) F eeling nervous, anxious, or on edge?More than half the days, N ot being able to stop or control worrying S everal days,?Worrying too much about different things S everal days, T rouble relaxing N ot at all, Being so restless that it is hard to sit still N ot at all, B ecoming easily annoyed or irritable S everal days, F eeling afraid as if something awful might happen M ore than half the days, T otal ARMEN-7 Score 7 , I f you checked any problems, how difficult have they made it for you to do your work, take care of things at home, or get along with other people??Somewhat difficult, I nterpretation of Total ( 5 to 9) Mild. C [place]-Suicide Severity Rating Scale: Suicide Risk (CSRS-screener) i n the past one month Have you wished you were or wished you could go to sleep and not wake up? N o. * Behavioral History: P ast psychiatric Hospitalization:No. [...] es, D o you have Power of Vulcanized Fiber Unit Operator for Health or Medical? N o. S [...] , Notes to Pharmacist: *Pick strength-form from [facility] for eRX*, Medication List reviewed and reconciled with the patient * Examination: G eneral Examination: C lient is casually groomed and oriented X 3. Assessment: * Assessment: 1. G eneralized anxiety disorder - F41.1 (Primary) 2 . M ajor depressive disorder, recurrent, moderate - F33.1 Plan: * Treatment: * Procedure Codes: 9 0834 PSYCHOTHERAPY W/PATIENT 45 MINUTES * Follow Up: 2 Weeks (Reason: therapy follow up) * Billing Information: * Visit Code: * Procedure Codes: 11848 PSYCHOTHERAPY W/PATIENT 45 MINUTES. * Sign off status: Completed Signatures: No Ad Hoc Signature Added true * Provider: Juan HILLS LCSW Date: 0 05/11/2024 Generated for Printi jean-claude/Beck/eTransmitting on: 0 05/12/2024 10:24 AM CDT History and Physical Notes * HPI (History of Present Illness) Category Sub-Category Detail Notes Category Not es Depression Screening ARMEN-7 (2018 Edition) Feelin g nervous, anxious, or on edge: More than half the days Not being able to stop or control worryi ng: Several days Worrying too much about different things : Several days Trouble relaxing: Not at all Being so restless that it is hard to sit still: Not at all Becoming easily annoyed or irritable: Se veral days Feeling afraid as if something awful kareen ht happen: More than half the days Total ARMEN-7 Score: 7 If you checked any problems, how difficult have they made it for you to do your work, take care of things at home, or get along with other people?: Somewhat difficult Interpretation of Total: (5 to 9) Mild [place]-Suicide Severity Rating Scale Suicide Risk (CSRS-screener) in the past one month Have you wished you were or wished you could go to sleep and not wake up?: No Examination Category Sub-Category Detail Notes Category Not es General Examination Client i s casually groomed and oriented X 3
--- OUTSIDE RECORDS SUMMARY | 2024-05-12 10:25 | XMS_ITS | Clinical Summary ---
Author Organization [facility] Address [address] [place] [address] Care Team Providers Care Grails Web Application Developer Name Role Phone Mariana Gardner MD Primary Care Provider [phone] Source Comments [facility]non-owned Affiliates and Associated Physician Practices is amultiple site organization consisting of ambulatory clinics and hospital sitesin [place], [place] and [place]. This disclosure is being madepursuant to the Care Everywhere program and may not contain all information available regarding this patient. Last updated 17.[facility] Immunizations Name Administration Dates Next Due Covid Pfizer primary monoval ent 12+ yr 0.3mL Purple cap 04/14/2020,03/24/2020 Social History Tobacco Use Types Packs/Day Years Used Date Smoking Tobacco: Never Assessed Sex and Gender Information Value Date Recorded Sex Assigned at Not on file Gender Identity Not on file Sexual Orientation Not on file Plan of Treatment Health Maintenance Due Date Last Done Comments BONE DENSITY TESTING 1960 COLOGUARD (AGES 45-75) - COL ON CA SCREENING 1960 COLON MONITORING 1958 COLONOSCOPY - COLON CA SCREENING 1958 CT COLONOGRAPHY - COLON CA SCREENING 1960 Colorectal Cancer Screening 1960 FIT - COLON CA SCREENING 1958 FLEX SIG - COLON CA SCREENING 1958 LIPID TESTING 1960 MAMMOGRAM 1960 HEPATITIS C SCREENING 01/09/1976 DTAP/TDAP/TD VACCINES (1 - Tdap) 1977 PNEUMOCOCCAL VACCINE 50+ (1 of 1 - PCV) 01/14/2008 ZOSTER VACCINE (1 of 2) 01/14/2008 COVID-19 VACCINE (3 - 2023-2 5 season) 2023 04/14/2020, 03/24/2020 INFLUENZA VACCINE (#1) 2023 DEPRESSION SCREENING 02/25/2024 Respiratory Syncytial Virus (RSV) Vaccine Pt: or over 60 yrs (1 - 1-dose 75+ series) 2033 HEPATITIS B VACCINE Aged Out No longe r eligible based on patient's age to complete this topic HIB VACCINE Aged Out No longer eligi ble based on patient's age to complete this topic HPV VACCINE Aged Out No longer eligi ble based on patient's age to complete this topic MENINGOCOCCAL (Group B) VACCINE SHARED DECISION-MAKING Aged Out No longer eligible based on patient's age to complete this topic MENINGOCOCCAL GROUPS A/C/Y/W VACCINE Aged Out No longer eligible b ased on patient's age to complete this topic Care Teams Grails Web Application Developer Relationship Specialty Start Date End Date Mariana Gardner MD [address] [place] [address] PCP - General 12/30/19
[2024-05-12 13:21] LABS: Alanine Aminotransferase 19 U/L (6-35); Albumin Level 4.2 g/dL (3.5-5.1); Alkaline Phosphatase 58 U/L (38-126); Anion Gap 9 mmol/L (4-12); Aspartate Amino Transferase 38 U/L (14-36); Bilirubin,Total 0.3 mg/dL (0.2-1.3); Blood Urea Nitrogen 20 mg/dL (7-17); Calcium 9.5 mg/dL (8.4-10.2); Carbon Dioxide 30 mmol/L (22-30); Chloride 103 mmol/L (98-107); Cholesterol 178 mg/dL (0-200); Estimated Glomerular Filt Rate 60; Glucose 88 mg/dL (65-110); HDL Direct 48 mg/dL; Potassium 4.2 mmol/L (3.4-5.0); Sodium 142 mmol/L (137-145); Triglycerides 87 mg/dL (<150)
[2024-05-12 13:32] LABS: LDL Cholesterol Direct 100 mg/dL
[2024-05-12 13:51] LABS: Thyroid Stimulating Hormone 0.409 uIU/mL (0.465-4.680)
[2024-05-12 14:37] LABS: Vitamin D 25 Hydroxy 65.1 ng/mL
== END 2024-05-12 09:23 | disposition home or self-care (01) ==
LOC: ANHGOSHLAB 09:24
PROVIDERS: PCP Family Medicine; Visit Provider Family Medicine
DX: E89.0 Postprocedural hypothyroidism (principal); I10 Essential (primary) hypertension; Z78.0 Asymptomatic menopausal state
CPT/HCPCS: 36415; 80053; 80061; 82306; 84443

== ENCOUNTER 2024-07-20 13:20 | Outpatient (CLI) | payer MEDICARE, SELFPAY ==
--- OUTSIDE RECORDS SUMMARY | 2024-07-20 13:23 | XMS_ITS | Continuity of Care Document ---
Author Organization [facility] Address [address] [place] [address] Phone Care Team Providers Care Deputy Manager Name Role Phone Lee OD, Mateo Unavailable Unavailable Procedures Procedure Date Contact Lens Fitting Eye Exam & Treatment Refraction Eye Exam & Treatment Refraction Advance Directives Directive Yes / No Effective Date File Name No Information Encounters Encounter Description Practice Location Reason(s) For Visit Diagnoses Date Provider Providers Copied on Encounter [facility], [id number] [place] [address] [address], [place], [place], [id number], tel:[phone] [facility] No Information 8-200 9 Lee OD Mateo. [address] , [address], [place], [place], [facility], . tel:[phone] [facility], [address], [place], [place], [address], [place] tel:[phone] [facility] No Information 3-200 9 Krishnasamy Hubert. [address], [place], [place], [facility], . tel:[phone] [facility], [address], [place], [place], [address], [place] tel:[phone] [facility] No Information Aug-1 3-200 7 Torsten Grayson. [address], [address], [place], [place], [id number], [place]. tel:[phone] Family History Family Member Type Diagnosis Age [...]
--- OUTSIDE RECORDS SUMMARY | 2024-07-20 13:23 | XMS_ITS | Patient Health Record ---
Author Organization [facility] Address [address] [place] [address] Care Team Providers Care Public Information Officer Name Role Phone ALEJANDRA IBARRA MD Primary Care Provider Suly Phong Kaur Unavailable [phone] ReinierEva glover Unavailable [phone] Allergies Allergen (clinical drug ingredient) Drug/Non Drug Allergy documented on EMR Reaction Allergy Type Onset Date Status Substance with penicillin structure and antibacterial mechanism of action (substance) Penicillins Unknown Drug Allergy 11/04/2022 Active Reason For Referral No Information Medications Medication SIG (Take, Route, Frequency, Duration) Notes Start Date End Date Status hydroCHLOROthiazide 25 MG Oral 11/04/2022 Active Vitamin D3 125 MCG (5000 UT) Oral 11/04/2022 Active Centrum Silver *Pick strength-form from Medispan for eRX* 11/04/2022 Active Levothyroxine Sodium 75 MCG Oral 11/04/2022 Active Venlafaxine HCl ER 75 MG 1 capsule in th e morning Oral Once a day for 90 days by FRED ROBERTS 11/04/2022 Active Social History Tobacco Use: Social [...] Risk Notes Problem Moderate recurrent major depression (44751537) Major depressive disorder, recurrent, moderate (F33.1) 3 Active confirmed Problem Generalized anxiety disorder (74004141) Generalized anxiety disorder (F41.1) Active confirmed Vital Signs Heart Rate 76 /min 06/09/2024 Height-cm 161.29 cm 06/09/2024 Blood pressure diastolic 87 mm Hg 06/09/2024 Weight-kg 57.15 kg 06/09/2024 Height 63.50 in 06/09/2024 Blood pressure systolic 140 mm Hg 06/09/2024 Weight 126 lbs 06/09/2024 BMI 21.97 kg/m2 06/09/2024 Encounters Encounter Location Date Provider Diagnosis [facility] [place] [address] [address] 03/18/2024 Phong Vikas Generalized anxiety disorder F41.1 and Major depressive disorder, recurrent, moderate F33.1 [facility] [place] [address] [address] 03/24/2024 Eva Reinier Generalized anxiety disorder F41.1 and Major depressive disorder, recurrent, moderate F33.1 [facility] [place] [address] [address] 04/08/2024 Eva Reinier Generalized anxiety disorder F41.1 and Major depressive disorder, recurrent, moderate F33.1 [facility] [place] [address] [address] 05/11/2024 Eva Reinier Generalized anxiety disorder F41.1 and Major depressive disorder, recurrent, moderate F33.1 [facility] [place] [address] [address] 06/09/2024 Phong Vikas Generalized anxiety disorder F41.1 ; Major depressive disorder, recurrent, moderate F33.1 ; Encounter for screening for depression Z13.31 ; Encounter for screening for cardiovascular disorders Z13.6 and Dietary counseling and surveillance Z71.3 [facility] [place] [address] [address] 03/18/2024 Phong De Lunaam Assessments Encounter Date Diagnosis (ICD Code) Assessment Notes Treatment Notes Treatment Clinical Notes Section Notes 03/18/2024 Generalized anxiety disorder (ICD-10 - F41.1) 03/24/2024 Generalized anxiety disorder (ICD-10 - F41.1) Client is a 64 y/o old, female (44 years), with 2 grown children (son live [facility], daughter lives in [place]). 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 Client is the youngest of 2 and grew up in [place], [place]. She reports childhood was happy and [...] 05/11/2024 Generalized anxiety disorder (ICD-10 - F41.1) 06/09/2024 Major depressive disorder, recurrent, moderate (ICD-10 - F33.1) 06/09/2024 Generalized anxiety disorder (ICD-10 - F41.1) 06/09/2024 Encounter for screening for depression (ICD-10 - Z13.31) 05/11/2024 Major depressive disorder, recurrent, moderate (ICD-10 - F33.1) 04/08/2024 Major depressive disorder, recurrent, moderate (ICD-10 - F33.1) 03/24/2024 Major depressive disorder, recurrent, moderate (ICD-10 - F33.1) Client is a 64 y/o old, female (44 years), with 2 grown children (son live [facility], daughter lives in [place]). 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 Client is the youngest of 2 and grew up in [place], [place]. She reports childhood was happy and [...] depressive disorder, recurrent, moderate (ICD-10 - F33.1) 06/09/2024 Encounter for screening for cardiovascular disorders (ICD-10 - Z13.6) 06/09/2024 Dietary counseling and surveillance (ICD-10 - Z71.3) 03/18/2024 Other Learning About Depression Screening material [...] of enabling behavior. - Recommend attending a [facility] support group for additional resources and [...] years), with 2 grown children (son live [facility], daughter lives in [place]). Client is a high school graduate, who worked at a [email or web address], retired about 3 years ago. Client is the youngest of 2 and grew up in [place], [place]. She reports childhood was happy and [...] feels. She and continue to go to [facility] and client has also consulted with her costume shop coordinator for guidance according to her bhavesh. Therapist actively listened to client and utilized a cognitive behaviorall intervention to help client explore strategies to minimize her guilt (setting firm boundaries with her son, turn guilt over to God, etc). ARMEN=7 mild 06/09/2024 Other Pooja Trevizo, female patient with history of anxiety and depression, presents with concerns about her son's alcohol use disorder and its impact on her mental health. Anxiety and Depression Assessment: Patient reports doing well overall but experiencing increased worry and stress related to her son's alcohol use disorder. She has been taking venlafaxine (Wellofaxine) with good effect, though she reports some sleep disturbances. Patient has found Al-Anon meetings helpful in coping with her son's substance use issues. Despite the stress from her son's situation, the patient's mood appears to be relatively stable on her current medication regimen. Plan: - Continue venlafaxine (Wellofaxine) at current dose (dose not specified in transcript) - Continue attending Al-Anon meetings - Maintain ongoing counseling with Eva - Follow up with psychiatrist in 4 months - Patient instructed to contact if medication adjustment is needed before next scheduled appointment Caregiver Stress Assessment: Patient is experiencing stress and worry related to her son's alcohol use disorder. Her son recently completed a rehab program but has since relapsed. The patient reports that her son's situation brought [her] down during the winter, indicating a significant impact on her own mental health. She is actively engaging in coping strategies, including attending Al-Anon meetings, which she finds beneficial. Plan: - Continue attending Al-Anon meetings - Maintain ongoing counseling with Eva for additional support Disclaimer: This note has been transcribed using speech recognition software and serves as a reflection of the patient's visit. While efforts have been made to ensure accuracy, there may be errors, including gas meter repair supervisor inaccuracies and misspellings of medication names. This document should not be considered a verbatim record, and any discrepancies should be verified with the provider. Plan Of Treatment Next Appt Details Provider Name:Phong Bean , 10/13/2024 10:45:00 AM, [address], [address], [place], [address], Insurance Providers Payer Name Payer Address Payer Phone Subscriber Number Group Number Insured Name Patient Relationship to Insured Coverage Start Date Coverage End Date [place] [address] [place] [address] [id number] POOJA TREVIZO Self - patient is the insured [employer] Medicare Supplement [address] [address] [place] [address] [id number] POOJA TREVIZO Self - patient is the insured Medical (General) History Medical History History ICD Code Problems: Generalized anxiety disorder Moderate recurrent major depression , Surgical History Surgery Date(Month/Year) Any surgical history 02/24/2018 Tonsilectomy/adenoids 08/09/1995
--- OUTSIDE RECORDS SUMMARY | 2024-07-20 13:23 | XMS_ITS | Encounter Summary ---
Author Organization [facility] Address [address] [place] [address] Care Team Providers Care Special Services Director Name Role Phone Mariana Gardner MD Primary Care Provider [phone] Encounter Details Date Type Department Care Team (Late st Contact Info) Description 12/31/2019 Lab Requisition [facility] [address] [facility] [place] [address] [place] [address] [place] [address] Social History Tobacco Use Types Packs/Day Years Used Date Smoking Tobacco: Never Assessed Comments Unknown Sex and Gender Information Value Date Recorded Sex Assigned at Not on file Legal Sex Female 3:48 PM PRELOAD SUPERVISOR Gender Identity Not on file Sexual Orientation Not on file documented as of this encounter Plan of Treatment Not on file documented as of this encounter Procedures Procedure Name Priority Date/Time Associated Diagnosis Comments DERMATOPATHOLOGY Routine 12/30/2019 12:0 0 AM PRELOAD SUPERVISOR documented in this encounter Results * DERMATOPATHOLOGY (12/30/2019 12:00 AM PRELOAD SUPERVISOR) Case Report Dermatopathology Report Case: [id number] Authorizing Provider: Zak Alvarenga MD Collected: 12/30/2019 12:00 AM Ordering Location: [facility] Received: 12/31/2019 05:48 AM Pathologist: Angela Haq MD Specimen: Skin, crown of scalp 0 12:31 PM PRELOAD SUPERVISOR DERMATOPATHOLOGY LABORATORY Final Diagnosis Specimen A. SKIN, crown of scalp: TRICHILEMMAL (PILAR) CYST WITH CALCIFICATION (L72.12) 0 12:31 PM [facility] DERMATOPATHOLOGY LABORATORY at 1231 PRELOAD SUPERVISOR Clinical History R/O neoplasia. 0 12:31 PM [facility] DERMATOPATHOLOGY LABORATORY Gross Description Specimen A: Received is one formalin filled container labeled with the patient's name and designated crown of scalp. The specimen consists of an excision submitted in 3 pieces measuring [id number], bisected, 3y3d2mg, & 6m6u3ur. Jar 0. 0 12:31 PM [facility] DERMATOPATHOLOGY LABORATORY Microscopic Description Specimen A. SKIN, crown of scalp: Sections show a cyst that is lined by stratified squamous epithelium that shows trichilemmal keratinization (no granular layer). There is homogeneous pink keratin and aggregates of homogenous amorphous basophilic material consistent with calcium within the cyst. 0 12:31 PM [facility] DERMATOPATHOLOGY LABORATORY Disclaimer An external and internal positive and negative controls are appropriate for the histochemical, immunohistochemical and immunofluorescence stain(s) in this case (if any), except where stated explicitly. The performance characteristics of the stain(s) cited in this report were developed and its performance characteristic determined by the Dermatopathology Laboratory at [facility], directed by Dr. Ruperto Novak. These tests need not be, and therefore are not, approved by the [place] Food and Drug Administration. The tests are used for clinical purposes. Billing Codes Specimen Charges Stain Charges 30670 1 0 12:31 PM [facility] DERMATOPATHOLOGY LABORATORY Embedded Images 0 12:31 PM [facility] DERMATOPATHOLOGY LABORATORY Pathology/Cytolog y TISSUE SPECIMEN FROM SKIN / Unknown 12/30/2019 12/31/2019 5:48 AM PRELOAD SUPERVISOR Zak Alvarenga MD LAB - PATHOLOGY/CYTOLOGY ORDERAB LES Final Result DERMATOPATHOLOGY LABORATORY [facility] - Department of Dermatology [facility] [address] [place] [address], [address] [place] [address], [facility] [phone] documented in this encounter Visit Diagnoses Not on filedocumented in this encounter Care Teams Special Services Director Relationship Specialty Start Date End Date Mariana Gardner MD [address] [place] [address] PCP - General 12/30/19 documented as of this encounter
--- OUTSIDE RECORDS SUMMARY | 2024-07-20 13:23 | XMS_ITS | Clinical Summary ---
Author Organization [facility] Address [address] [place] [address] Care Team Providers Care Child Psychology Teacher Name Role Phone Mariana Gardner MD Primary Care Provider [phone] Source Comments [facility],non-owned Affiliates and Associated Physician Practices is amultiple site organization consisting of ambulatory clinics and hospital sitesin [place], [place], [place] and [place]. This disclosure is being madepursuant to the Care Everywhere program and may not contain all information available regarding this patient. 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
== END 2024-07-20 13:21 | disposition home or self-care (01) ==
LOC: ANHGOSHLAB 13:21
PROVIDERS: PCP Family Medicine; Visit Provider Student in an Organized Health Care Education/Training Program
DX: E03.9 Hypothyroidism, unspecified (principal)
CPT/HCPCS: 36415; 84443

== ENCOUNTER 2025-01-07 09:28 | Outpatient (CLI) | payer MEDICARE, SELFPAY ==
--- OUTSIDE RECORDS SUMMARY | 2008-05-21 02:15 | XMS_ITS | Continuity of Care Document ---
Author Organization [facility] Address [address] [place] [address] Phone Care Team Providers Care Small Animal Veterinarian Name Role Phone Lee OD, Mateo Unavailable Unavailable Procedures Procedure Date Contact Lens Fitting Eye Exam & Treatment Refraction Eye Exam & Treatment Refraction Advance Directives Directive Yes / No Effective Date File Name No Information Encounters Encounter Description Practice Location Reason(s) For Visit Diagnoses Date Provider Providers Copied on Encounter formerly [facility], [address] [place] [address] [address], [place], [place], [address], tel:[phone] [facility] No Information 8-200 9 Lee OD Mateo. [address] , [address], [place], [place], [facility], . tel:[phone] formerly [facility], [address], [place], [place], [address], [place] tel:[phone] [facility] No Information 3-200 9 Krishnasamy Hubert. [address], [place], [place], [facility], . tel:[phone] formerly [facility], [address], [place], [place], [address], [place] tel:[phone] [facility] No Information Aug-1 3-200 7 Torsten Grayson. [address], [address], [place], [place], [address], [place]. tel:[phone] Family History Family Member Type Diagnosis Age At Onset No Information Payers Payer name Insurance type Covered constitution party ID Authoriza tion(s) No Information Social History Type Description Quantity Date Captured Comments Sex Female Smoking Status No Information Chief Complaint And Reason For Visit No Information Reason For Referral Reason For Referral No Information History Of Present Illness Encounter Date Complaint History Of Prese nt Illness No Information Functional Status Date Functional Assessmen t No Information Instructions Date Instruction Additional Infor mation No Information Assessments Type Assessment Date No Information Patient Care Teams Name Effective Dates (start - stop) Status Members No Information
--- OUTSIDE RECORDS SUMMARY | 2008-05-21 02:15 | XMS_ITS | Continuity of Care Document ---
Author Organization [facility] Address [address] [place] [address] Phone Care Team Providers Care Straightedge Machine Operator Helper Name Role Phone Lee OD, Mateo Unavailable Unavailable Procedures Procedure Date Contact Lens Fitting Eye Exam & Treatment Refraction Eye Exam & Treatment Refraction Advance Directives Directive Yes / No Effective Date File Name No Information Encounters Encounter Description Practice Location Reason(s) For Visit Diagnoses Date Provider Providers Copied on Encounter [facility], [address] [place] [address] [address], [place], [place], [address], tel:[phone] [facility] No Information 8-200 9 Lee OD Mateo. [address] [place] , [address], [place], [place], [facility], . tel:[phone] [facility], [address], [place], [place], [address], [place] tel:[phone] [facility] No Information 3-[address], [place], [place], [facility], . tel:[phone] [facility], [address], [place], [place], [address], [place] tel:[phone] [facility] No Information Aug-1 3-200 7 Torsten Grayson. [address], [address], [place], [place], [address], [place]. tel:[phone] Family History Family Member Type Diagnosis Age At Onset No Information Payers Payer name Insurance type Covered libertarian ID Authoriza tion(s) No Information Social History [...]
--- OUTSIDE RECORDS SUMMARY | 2008-05-21 02:15 | XMS_ITS | Continuity of Care Document ---
Author Organization [facility] Address [address] [place] [address] Phone Care Team Providers Care Computer Typesetter Name Role Phone Lee OD, Mateo Unavailable Unavailable Procedures Procedure Date Contact Lens Fitting Eye Exam & Treatment Refraction Eye Exam & Treatment Refraction Advance Directives Directive Yes / No Effective Date File Name No Information Encounters Encounter Description Practice Location Reason(s) For Visit Diagnoses Date Provider Providers Copied on Encounter [facility], [address] [place] [address] [address], [place], [place], [address], tel:[phone] [facility] No Information 8-200 9 Lee OD Mateo. [address] [place] , [address], [place], [place], [facility], . tel:[phone] [facility], [address], [place], [place], [address], [place] tel:[phone] [facility] No Information 3-200 9 Krishnasamy Hubert. [address], [place], [place], [facility], . tel:[phone] [facility], [address], [place], [place], [address], [place] tel:[phone] [facility] No Information Aug-1 3-200 7 Torsten Grayson. [address], [address], [place], [place], [address], [place]. tel:[phone] Family History Family Member Type Diagnosis Age [...]
--- OUTSIDE RECORDS SUMMARY | 2008-05-21 02:15 | XMS_ITS | Continuity of Care Document ---
Author Organization [facility] Address [address] [place] [address] Phone Care Team Providers Care Dye Tank Tender Name Role Phone Lee OD, Mateo Unavailable Unavailable Procedures Procedure Date Contact Lens Fitting Eye Exam & Treatment Refraction Eye Exam & Treatment Refraction Advance Directives Directive Yes / No Effective Date File Name No Information Encounters Encounter Description Practice Location Reason(s) For Visit Diagnoses Date Provider Providers Copied on Encounter [facility], [address] [place] [address] [address], [place], [place], [address], tel:[phone] [facility] No Information 8-200 9 Lee OD Mateo. [address] [place] , [address], [place], [place], [facility], . tel:[phone] [facility], [address], [place], [place], [address], [place] tel:[phone] [facility] No Information 3-200 9 Krishnasamy Hubert. [address], [place], [place], [facility], . tel:[phone] [facility], [address], [place], [place], [address], [place] tel:[phone] [facility] No Information Aug-1 3-200 7 Torsten Graysno. [address], [address], [place], [place], [address], [place]. tel:[phone] Family History Family Member Type Diagnosis Age At Onset No Information Payers Payer name Insurance type Covered democrat ID Authoriza tion(s) No Information Social History [...]
--- OUTSIDE RECORDS SUMMARY | 2024-10-13 04:45 | XMS_ITS ---
Author Organization [facility] Address [facility] [address] [facility] [address] [place] [address] Care Team Providers Care Computer Programming Supervisor Name Role Phone FRED MORRIS, ALEJANDRA Primary Care Provider Unav ailPhong James Unavailable [phone] REASON FOR VISIT 4 MONTH F/U Social History Sex Assigned At : Social History Observation Description Sex Assigned At Female Encounters Encounter Location Date Provider Diagnosis [facility] [place] [address] [facility] [address] [facility] [address] [place] [address] 10/13/2024 Phong Montaño Plan Of Treatment No Information Progress Notes * ZORAIDA TREVIZODOB: 8 (64 yo F)Acc No.[id number]:10/13/2024 Patient: ZORAIDA VILLANUEVA Provider: Hiram MONTAÑO MD :1960 A ge:64 Y S ex:Female Date:10/13/2024 Address:[address] [place], [place] [address] Pcp:ALEJANDRA IBARRA MD Subjective: * Chief Complaints: * 4 MONTH F/U * Active Problem List F41.1 Generalized anxiety disorder Onset Date:11/04/2022Modified On:03/18/2024W/U Status:confirmed F33.1 Major depressive dis order, recurrent, moderate Onset Date:11/04/2022Modified On:03/18/2024W/U Status:confirmed * Electronic signature of Sophy Montaño MD on 01/07/2025 at 10:32 AM WIND TURBINE ELECTRICAL ENGINEER Sign off status: Pending * Provider: Hiram MONTAÑO MD Date: 0 10/13/2024 Generated for Shira bermeo/Beck/Doretha on: 1 03/09/2024 10:32 AM WIND TURBINE ELECTRICAL ENGINEER
--- NOTE | ~2025-01-07 | MM_ITS ---
EXAMINATION: MM screening marin BI w rico HISTORY: Screening TECHNIQUE: Craniocaudal and mediolateral oblique 3-D tomosynthesis images were obtained and synthetic 2-D images were generated. CAD analysis was submitted and interpreted. COMPARISON: Comparison to multiple prior studies sequentially, with oldest reviewed study dated 12/14/2015. BREAST PARENCHYMAL COMPOSITION: Dense: The breasts are extremely dense, which lowers the sensitivity of mammography. FINDINGS: There is no evidence of suspicious mass, calcification, or architectural distortion to suggest malignancy in either breast. There has been no suspicious interval change. IMPRESSION: 1. No mammographic evidence of malignancy. 2. Recommend routine screening mammography in one year. BI-RADS Category 1: Negative Reviewed, dictated and finalized at location B. ESSIONS MANAGER
--- NOTE | ~2025-01-07 | DEXA_ITS ---
Bone Density Report Name: ZORAIDA TREVIZO Age: 64 Sex: Female Ethnicity: White Date of : 1960 Indication: postmenopausal osteoporosis; height loss; Referring Provider: ROSALBA ALANIZ Study: Bone densitometry was performed. Exam Date: January 07, 2025 Accession number: [id number] Bone Density: Region BMD T-score Z-score Classification AP Spine(L2, L3, L4) 0.773 -2.8 -0.8 Osteoporosis Femoral Neck (Left) 0.696 -1.4 0.2 Osteopenia Total Hip (Left) 0.942 0.0 1.3 Normal Femoral Neck (Right) 0.692 -1.4 0.2 Osteopenia Total Hip (Right) 0.896 -0.4 1.0 Normal Total Hip Mean 0.919 -0.2 1.2 Normal World Health Organization criteria for BMD impression classify patients as: Normal (T-score at or above -1.0), Osteopenia (T-score between -1.0 and -2.5), or Osteoporosis (T-score at or below -2.5). 10-year Fracture Risk: FRAX not reported because: Some T-score for Spine Total or Hip Total or Femoral Neck at or below -2.5 Previous Exams: Region Exam Age BMD T-score BMD Change BMD Change Date g/cm2 vs Baseline vs Previous AP Spine (L2-L4) 01/07/2025 64 0.773 -2.8 -0.021 (-2.7%) -0.021 (-2.7%) 06/18/2021 61 0.794 -2.6 Total Hip(Left) 01/07/2025 64 0.942 0.0 0.122 (14.9%)* 0.122 (14.9%)* 06/18/2021 61 0.820 -1.0 Total Hip(Right) 01/07/2025 64 0.896 -0.4 0.070 (8.4%)* 0.070 (8.4%)* 06/18/2021 61 0.826 -1.0 *Denotes significance at 95% confidence level, LSC for AP Spine = 0.022 g/cm2, LSC for Total Hip = 0.027 g/cm2 Clinical Information Provided by Patient: Has used the following medications: Vitamin D, Calcium Patient maximum height was 65.0 Menopause Age: 50 Drinks caffeinated beverages Onset of menses at age 11 Number of children 2 Impression: The patient has osteoporosis, based on the Total Spine T-score. No significant bone loss was observed. Discussion: INCREASED RISK OF FRACTURE. BONE DENSITY IS UNDESIRABLY LOW AT ONE OR MORE SKELETAL SITES, CONSISTENT WITH POSTMENOPAUSAL OSTEOPOROSIS. This patient's lowest T-score meets the World Health Organization's (WHO) criteria for osteoporosis at one or more sites (T-score -2.5 or below). In untreated patients, the risk of osteoporotic fracture increases approximately two-fold for each 1.0 SD decrease in T-score. Low bone density is not the only risk factor for fracture; also consider factors such as patient's age, frailty or poor health, risk of falling, risk of injury, previous osteoporotic fracture, family history of osteoporosis, cigarette smoking, low body weight, etc. Not everyone with low bone mineral density has osteoporosis; osteomalacia and other metabolic bone disorders should also be considered. Patients who have osteoporosis should be evaluated for specific diseases and conditions (secondary causes) that may cause or contribute to bone loss. The [place] Association [employer] Clinical Endocrinologists (AACE) and National Osteoporosis Foundation (NOF) recommend pharmacologic intervention for all postmenopausal women whose T-score is in this range. The patient should follow a healthful lifestyle (good nutrition with adequate calcium and vitamin D, and appropriate weight-bearing exercise). Follow-Up: Consider a repeat BMD and Vertebral Fracture Assessment (VFA) exam in 2 years or sooner if medically necessary, to reassess this patient's status. Reported by: LANG on 01/07/2025 10:54:00 AM. Reviewed, dictated and finalized at location A.
--- OUTSIDE RECORDS SUMMARY | 2025-01-07 10:33 | XMS_ITS | Patient Health Record ---
Author Organization [facility] Address [address] [place] [address] Care Team Providers Care Medical Review Specialist Name Role Phone ALEJANDRA IBARRA MD Primary Care Provider Suly garcia oSraya Beany Unavailable [phone] ReinierEva Unavailable [phone] Allergies Allergen (clinical drug ingredient) Drug/Non Drug Allergy documented on EMR Reaction Allergy Type Onset Date Status Substance with penicillin structure and antibacterial mechanism of action (substance) Penicillins Unknown Drug Allergy 11/04/2022 Active Reason For Referral No Information Medications Medication SIG (Take, Route, Frequency, Duration) Notes Start Date End Date Status hydroCHLOROthiazide 25 MG Tablet Oral 11/04/2022 Active Vitamin D3 125 MCG (5000 UT) Tablet Chewable Oral 11/04/2022 Active Centrum Silver *Pick strength-form from Medispan for eRX* 11/04/2022 Active Levothyroxine Sodium 75 MCG Tablet Oral 11/04/2022 Active Venlafaxine HCl ER 75 MG Capsule Extended Release 24 Hour 1 capsule in the morning Oral Once a day; Duration: 90 days by FRED ROBERTS 11/04/2022 Active Social History Tobacco Use: Social History Observation Description Date Details (start date - stop date) Never Smoker NA - NA Sex Assigned At : Social History Observation Description Sex Assigned At Female Social History Miscellaneous: Social Info Question Answer Notes Advance Care Planning Are you your own decision-maker Yes Do you have Power of Sterilizer Operator for Health or Medi germania? No Advance Directive FULL CODE Safety issues: Are there any firearms in the house? No Social History Social Info Question Answer Notes Household: Marital Status: Number of Adults in household: 2 Number of Children in Household: 1 Level of Education: Not Answered Drug/Alcohol: Social Info Question Answer Notes Drugs Have you used drugs other than those for medical reasons in the past 12 months? No AUDIT-C (Standard) Did you have a drink containing alcohol in the past year? 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 Social History Migrated Social History Alcohol Intake: None 11/04/2022,Tobacco Years: Never smoker 11/04/2022 Problems Problem Type SNOMED Code ICD Code Onset Dates Problem Status W/U Status Risk Notes Problem Moderate recurrent major depression (41368647) Major depressive disorder, recurrent, moderate (F33.1) 3 Active confirmed Problem Generalized anxiety disorder (58857072) Generalized anxiety disorder (F41.1) 3 Active confirmed Vital Signs Heart Rate 76 /min 06/09/2024 Height-cm 161.29 cm 06/09/2024 Blood pressure diastolic 87 mm Hg 06/09/2024 Weight-kg 57.15 kg 06/09/2024 Height 63.50 in 06/09/2024 Blood pressure systolic 140 mm Hg 06/09/2024 Weight 126 lbs 06/09/2024 BMI 21.97 kg/m2 06/09/2024 Encounters Encounter Location Date Provider Diagnosis [facility] [address] [employer] [address] [facility] [address] [address] 03/18/2024 Phong Bean Generalized anxiety disorder F41.1 and Major depressive disorder, recurrent, moderate F33.1 [facility] [address] [employer] [address] [facility] [address] [address] 03/24/2024 Eva Reinier Generalized anxiety disorder F41.1 and Major depressive disorder, recurrent, moderate F33.1 [facility] [address] [employer] [address] [facility] [address] [facility] [address] [place] [address] 04/08/2024 Eva Reinier Generalized anxiety disorder F41.1 and Major depressive disorder, recurrent, moderate F33.1 [facility] [address] [employer] [address] [facility] [address] [address] 05/11/2024 Eva Reinier Generalized anxiety disorder F41.1 and Major depressive disorder, recurrent, moderate F33.1 [facility] [facility] [address] [facility] [address] [facility] [address] [place] [address] 06/09/2024 Phong Vikas Generalized anxiety disorder F41.1 ; Major depressive disorder, recurrent, moderate F33.1 ; Encounter for screening for depression Z13.31 ; Encounter for screening for cardiovascular disorders Z13.6 and Dietary counseling and surveillance Z71.3 [place] [address] [facility] [address] [facility] [address] [place] [address] 03/18/2024 Phong Bean [facility] [address] [facility] [address] [facility] [address] [place] [address] 08/20/2024 Phong Bean Assessments Encounter Date Diagnosis (ICD Code) Assessment Notes Treatment Notes Treatment Clinical Notes Section Notes 03/18/2024 Generalized anxiety disorder (ICD-10 - F41.1) 03/24/2024 Generalized anxiety disorder (ICD-10 - F41.1) Client is a 64 y/o old, female (44 years), with 2 grown children (son live [facility], daughter lives in [place]). 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 Client is the youngest of 2 and grew up in [place], [place]. She reports childhood was happy and [...] and her son), irritability, and hypervigilance . 05/11/2024 Generalized anxiety disorder (ICD-10 - F41.1) 06/09/2024 Major depressive disorder, recurrent, moderate (ICD-10 - F33.1) 06/09/2024 Generalized anxiety disorder (ICD-10 - F41.1) 04/08/2024 Generalized anxiety disorder (ICD-10 - F41.1) 05/11/2024 Major depressive disorder, recurrent, moderate (ICD-10 - F33.1) 03/18/2024 Major depressive disorder, recurrent, moderate (ICD-10 - F33.1) 06/09/2024 Encounter for screening for depression (ICD-10 - Z13.31) 04/08/2024 Major depressive disorder, recurrent, moderate (ICD-10 - F33.1) 03/24/2024 Major depressive disorder, recurrent, moderate (ICD-10 - F33.1) Client is a 64 y/o old, female (44 years), with 2 grown children (son live [facility], daughter lives in [place]). Client is a high school graduate, who worked at a [employer], retired about 3 years ago. Client is the youngest of 2 and grew up in [place], [place]. She reports childhood was happy and [...] and her son), irritability, and hypervigilance . 06/09/2024 Encounter for screening for cardiovascular disorders [...] of enabling behavior. - Recommend attending a [facility] support group for additional resources and guidance. [...] years), with 2 grown children (son live [facility], daughter lives in [place]). 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 Client is the youngest of 2 and grew up in [place]. She reports childhood was happy and [...] feels. She and continue to go to [facility] and client has also consulted with her screener and blender for guidance according to her bhavesh. Therapist [...] ensure accuracy, there may be errors, including prestidigitator inaccuracies and misspellings of medication names. This document should not be considered a verbatim record, and any discrepancies should be verified with the provider. Plan Of Treatment No Information Insurance Providers Payer Name Payer Address Payer Phone Subscriber Number Group Number Insured Name Patient Relationship to Insured Coverage Start Date Coverage End Date Medicare-[place] Medicare [address] [place] [address] [id number] POOJA TREVIZO Self - patient is the insured [facility] [employer] Medicare Supplement [address] [address] [place] [address] [id number] POOJA TREVIZO Self - patient is the insured Medical (General) History Medical History History ICD Code Problems: Generalized anxiety disorder Moderate recurrent major depression , Surgical History Surgery Date(Month/Year) Any surgical history 02/24/2018 Tonsilectomy/adenoids 08/09/1995
--- OUTSIDE RECORDS SUMMARY | 2025-01-07 10:33 | XMS_ITS | Clinical Summary ---
Author Organization [facility] Address [address] [place] [address] Care Team Providers Care Tuck Pointer Helper Name Role Phone Mariana Gardner MD Primary Care Provider [phone] Source Comments [facility],non-owned Affiliates and Associated Physician Practices is amultiple site organization consisting of ambulatory clinics and hospital sitesin [place], [place], [place]. This disclosure is being madepursuant to the Care Everywhere program and may not contain all information available regarding this patient. Last updated 17.[facility] Immunizations Immunization Administration Dates Next Due Covid Pfizer primary monoval ent 12+ yr 0.3mL Purple cap 04/14/2020,03/24/2020 Social History Tobacco Use Types Packs/Day Years Used Date Smoking Tobacco: Never Assessed Comments Unknown Sex and Gender Information Value Date Recorded Sex Assigned at Not on file Legal Sex Female 3:48 PM MOVERS Gender Identity Not on file Sexual Orientation [...] 01/14/2008 ZOSTER VACCINE (1 of 2) 01/14/2008 DEPRESSION SCREENING 02/25/2024 COVID-19 VACCINE (3 - 2024-2 6 season) 2024 04/14/2020, 03/24/2020 INFLUENZA VACCINE (#1) 2024 Respiratory Syncytial Virus (RSV) Vaccine Pt: [...] complete this topic Insurance [employer] Care Teams Tuck Pointer Helper Relationship Specialty Start Date End Date Mariana Gardner MD [address] [place] [address] PCP - General 12/30/19
--- OUTSIDE RECORDS SUMMARY | 2025-01-07 10:33 | XMS_ITS | Encounter Summary ---
Author Organization [facility] Address [address] [place] [address] Care Team Providers Care Environmental Quality Analyst Name Role Phone Mariana Gardner MD Primary Care Provider [phone] Encounter Details Date Type Department Care Team (Late st Contact Info) Description 12/31/2019 Lab Requisition [facility] [address] [facility] [place] [address] [place] [address] [place] [id number] Social History Tobacco Use Types Packs/Day Years Used Date Smoking Tobacco: Never Assessed Comments Unknown Sex and Gender Information Value Date Recorded Sex Assigned at Not on file Legal Sex Female 3:48 PM [facility] Gender Identity Not on file Sexual Orientation Not on file documented as of this encounter Plan of Treatment Not on file documented as of this encounter Procedures Procedure Name Priority Date/Time Associated Diagnosis Comments DERMATOPATHOLOGY Routine 12/30/2019 12:0 0 AM ELEMENT BURNER documented in this encounter Results * DERMATOPATHOLOGY (12/30/2019 12:00 AM ELEMENT BURNER) Case Report Dermatopathology Report Case: [id number] Authorizing Provider: Zak Alvarenga MD Collected: 12/30/2019 12:00 AM Ordering Location: [facility] Received: 12/31/2019 05:48 AM Pathologist: Angela Haq MD Specimen: Skin, crown of scalp 0 12:31 PM [facility] Final Diagnosis Specimen A. SKIN, crown of scalp: TRICHILEMMAL (PILAR) CYST WITH CALCIFICATION (L72.12) 0 12:31 PM [facility] at [address] Clinical History R/O neoplasia. 0 12:31 PM [facility] Gross Description Specimen A: Received is one formalin filled container labeled with the patient's name and designated crown of scalp. The specimen consists of an excision submitted in 3 pieces measuring [id number], bisected, [id number], & [id number]. Jar 0. 0 12:31 PM [facility] Microscopic Description Specimen A. SKIN, crown of scalp: Sections show a cyst that is lined by stratified squamous epithelium that shows trichilemmal keratinization (no granular layer). There is homogeneous pink keratin and aggregates of homogenous amorphous basophilic material consistent with calcium within the cyst. 0 12:31 PM [facility] Disclaimer An external and internal positive and negative controls are appropriate for the histochemical, immunohistochemical and immunofluorescence stain(s) in this case (if any), except where stated explicitly. The performance characteristics of the stain(s) cited in this report were developed and its performance characteristic determined by the Dermatopathology Laboratory at [facility], directed by Dr. Ruperto Novak. These tests need not be, and therefore are not, approved by the [place] Food and Drug Administration. The tests are used for clinical purposes. Billing Codes Specimen Charges Stain Charges 16989 1 0 12:31 PM [facility] Embedded Images 0 12:31 PM [facility] Pathology/Cytolog y TISSUE SPECIMEN FROM SKIN / Unknown 12/30/2019 12/31/2019 5:48 AM ELEMENT BURNER Zak Alvarenga MD LAB - PATHOLOGY/CYTOLOGY ORDERAB LES Final Result DERMATOPATHOLOGY LABORATORY [facility] - Department of Dermatology [facility] Medicine [address] [place] [address], [address] [place] [address], [facility] [phone] documented in this encounter Visit Diagnoses Not on filedocumented in this encounter Care Teams Environmental Quality Analyst Relationship Specialty Start Date End Date Mariana Gardner MD [address] [place] [address] PCP - General 12/30/19 documented as of this encounter
== END 2025-01-07 09:29 | disposition home or self-care (01) ==
LOC: ANHFOHIMG 09:33
PROVIDERS: PCP Family Medicine; Visit Provider Family Medicine
DX: Z12.31 Encounter for screening mammogram for malignant neoplasm of breast (principal); Z78.0 Asymptomatic menopausal state
CPT/HCPCS: 77063; 77067; 77080